=== PATIENT | female | born 1935 | race Caucasian/White ===

== ENCOUNTER 2016-06-10 12:11 | Emergency (ER) | payer OTHER, BC ==
[~2016-06-10] VITALS: Ht 165.1 cm; Wt 75.0 kg
[~2016-06-10 12:11] MED LIST: ADVIL PM1 TABLET PO; ADVIL200 MG PO; ASPIR 8181 M1 PO; CALCIUM500 M6 GT; EVISTA60 MG PO; FISH OIL 1,0001 EAC7 PO; INDERAL20 MG PO; OMEPRAZOLE20 MG PO; PROPRANOLOL HCL PO; TYLENOL EXTRA500 MG PO; VITAMIN B-12250 MCG PO
[2016-06-10 13:47] LABS: HEMATOCRIT 39.2 % (36.0-46.0); MCH 31.4 PG (29.0-34.0); MCHC 33.9 G/DL (30.0-36.0); MCV 92.7 FL (83-99); MEAN PLAT.VOLUME 9.5 uM^3 (9.5-12.4); PLATELET COUNT 318 K/uL (156-360); RBC DIS.WIDTH-CV 13.8 % (11.8-14.6); RBC DIS.WIDTH-SD 45.3 % (39-53); RED BLOOD COUNT 4.23 M/uL (3.80-5.20); WHITE BLOOD COUNT 8.4 K/uL (4.1-10.2)
[2016-06-10 13:57] LABS: CHLORIDE 107 mEq/L (99-109); POTASSIUM 4.1 mEq/L (3.7-5.4); SODIUM 138 mEq/L (136-147)
[2016-06-10 13:59] LABS: GLUCOSE 104 mg/dL (70-99)
[2016-06-10 14:00] LABS: ANION GAP 11 MEQ/L (2-14)
[2016-06-10 14:03] LABS: GFR ESTIMATE (CALCULATED) > 59 mL/min/; UREA NITROGEN (BUN) 10 mg/dL (9-23)
[2016-06-10 15:30] VITALS: BP 156/85
== END 2016-06-10 15:31 | disposition home or self-care (01) ==
LOC: EME 12:11
DX: S43.402A Unspecified sprain of left shoulder joint, initial encounter (principal); R42 Dizziness and giddiness; R07.9 Chest pain, unspecified; W18.30XA Fall on same level, unspecified, initial encounter; K21.9 Gastro-esophageal reflux disease without esophagitis; Z86.73 Personal history of transient ischemic attack (TIA), and cerebral infarction without residual deficits; Z79.82 Long term (current) use of aspirin
CPT/HCPCS: 70450; 71020; 73030; 80048; 85027; 93005; 99281; 99284

== ENCOUNTER 2016-06-30 00:16 | Inpatient (IN) | payer OTHER, BC ==
[~2016-06-30] VITALS: Ht 165.1 cm; Wt 74.9 kg
[2016-06-30] MEDS ORDERED: ADVIL PM1 TABLET PO (01:47)
[2016-06-30 01:48] LABS: HEMATOCRIT 38.7 % (36.0-46.0); MCH 30.9 PG (29.0-34.0); MCHC 33.1 G/DL (30.0-36.0); MCV 93.5 FL (83-99); MEAN PLAT.VOLUME 9.5 uM^3 (9.5-12.4); PLATELET COUNT 309 K/uL (156-360); RBC DIS.WIDTH-CV 13.7 % (11.8-14.6); RBC DIS.WIDTH-SD 46.9 % (39-53); RED BLOOD COUNT 4.14 M/uL (3.80-5.20)
[2016-06-30] MEDS ORDERED: NASAL SPRAY30 M2 BOTH NARES (01:48)
[2016-06-30] MEDS ORDERED: GENTEAL TEARS 015 M1 BOTH EYES (01:48)
[2016-06-30 01:50] LABS: WHITE BLOOD COUNT 11.2 K/uL (4.1-10.2)
[2016-06-30 02:03] LABS: CHLORIDE 104 mEq/L (99-109); POTASSIUM 4.6 mEq/L (3.7-5.4); SODIUM 134 mEq/L (136-147)
[2016-06-30 02:05] LABS: GLUCOSE 136 mg/dL (70-99)
[2016-06-30 02:06] LABS: ANION GAP 10 MEQ/L (2-14)
[2016-06-30 02:09] LABS: GFR ESTIMATE (CALCULATED) > 59 mL/min/
[2016-06-30 02:10] LABS: UREA NITROGEN (BUN) 16 mg/dL (9-23)
[2016-06-30 02:15] LABS: TROP-I INTERPRETATION NEGATIVE; TROPONIN-I < 0.01 ng/mL (0.0-0.30)
[2016-06-30 02:32] LABS: ADD MIUA? YES; BILIRUBIN NEGATIVE; BLOOD NEGATIVE; COLOR YELLOW ((YELLOW)); GLUCOSE (STRIP) NEGATIVE; KETONES NEGATIVE; LEUKOCYTES TRACE; NITRITE NEGATIVE; PROTEIN (STRIP) NEGATIVE; SPECIFIC GRAVITY 1.017 (1.000-1.030); UROBILINOGEN 0.2 MG/DL (0.2-1.0)
[2016-06-30 02:53] LABS: BACTERIA NONE SEEN /HPF; EPITHELIAL CELLS 2+ /HPF; RED BLOOD CELLS 0-5 /HPF (0-5); UCUL ADDED? NO; WHITE BLOOD CELLS 0-5 /HPF (0-5)
[2016-06-30 02:54] LABS: MUCUS TRACE /LPF
[2016-06-30 05:32] VITALS: BP 169/77
[2016-06-30 07:46] VITALS: BP 117/60
[2016-06-30 11:57] VITALS: BP 149/68
[2016-06-30 15:55] VITALS: BP 168/77
[2016-06-30 20:40] VITALS: BP 163/73
[2016-07-01] VITALS (7 sets, daily range): BP systolic 135–168; BP diastolic 65–78
[2016-07-01 06:17] LABS: EOSINOPHIL (%) 3.7 % (0-5); EOSINOPHIL COUNT 0.3 K/uL (0-0.3); HEMATOCRIT 38.8 % (36.0-46.0); IMMATURE GRANULOCYTE (%) 0.4 % (0.0-0.7); INSTRUMENT ABS NEUTROPHIL CT 3.7 K/uL; LYMPHOCYTE COUNT 2.8 K/uL (1.0-2.8); MCH 30.6 PG (29.0-34.0); MCHC 32.2 G/DL (30.0-36.0); MCV 94.9 FL (83-99); MEAN PLAT.VOLUME 9.7 uM^3 (9.5-12.4); MONOCYTE (%) 12.5 % (3-12); NEUTROPHIL (%) 47.6 % (45-76); NEUTROPHIL COUNT 3.7 K/uL (1.8-6.4); PLATELET COUNT 285 K/uL (156-360); RBC DIS.WIDTH-CV 13.6 % (11.8-14.6); RBC DIS.WIDTH-SD 47.8 % (39-53); RED BLOOD COUNT 4.09 M/uL (3.80-5.20)
[2016-07-01 06:18] LABS: WHITE BLOOD COUNT 7.8 K/uL (4.1-10.2)
[2016-07-01 06:26] LABS: ALKALINE PHOSPHATASE 64 IU/L (3-129); ANION GAP 8 MEQ/L (2-14); CHLORIDE 103 MEQ/L (99-109); GFR ESTIMATE (CALCULATED) > 59 mL/min/; MAGNESIUM 2.1 mg/dl (1.3-2.7); POTASSIUM 4.4 MEQ/L (3.7-5.4); SAMPLE HEMOLYSIS CHECK 0; SAMPLE ICTERIC CHECK 0; SAMPLE LIPEMIA CHECK 0; SODIUM 135 MEQ/L (136-147); TOTAL BILIRUBIN 0.8 MG/DL (0.0-1.0); UREA NITROGEN (BUN) 8 mg/dL (9-23)
[2016-07-01 06:41] LABS: GLUCOSE 94 mg/dL (70-99)
[2016-07-02 05:33] VITALS: BP 156/72
[2016-07-02 08:00] VITALS: BP 165/75
[2016-07-02 11:56] VITALS: BP 142/66
[2016-07-02 15:45] VITALS: BP 120/66
[2016-07-02 23:42] VITALS: BP 149/76
[2016-07-03 07:19] VITALS: BP 152/72
[2016-07-03 15:38] VITALS: BP 139/77
[2016-07-03 23:27] VITALS: BP 142/60
[2016-07-04 07:54] VITALS: BP 149/69
[2016-07-04] MEDS ORDERED: NORCO 5/3251 TABLET PO (10:14)
[2016-07-04 12:33] VITALS: BP 149/94
== END 2016-07-04 12:43 | DRG 184 ==
LOC: EME → EDBD 00:16 → EME 00:16 → 3EAST 02:46 → EDOF 02:46 → 3EAST 05:16
PROVIDERS: Emergency Medicine; Surgery
DX: S22.43XA Multiple fractures of ribs, bilateral, initial encounter for closed fracture (principal); I47.2 Ventricular tachycardia; E87.1 Hypo-osmolality and hyponatremia; W18.39XA Other fall on same level, initial encounter; M25.512 Pain in left shoulder; E03.9 Hypothyroidism, unspecified; E78.2 Mixed hyperlipidemia; G25.0 Essential tremor; M81.0 Age-related osteoporosis without current pathological fracture; K21.9 Gastro-esophageal reflux disease without esophagitis; Y92.019 Unspecified place in single-family (private) house as the place of occurrence of the external cause; D72.829 Elevated white blood cell count, unspecified
CPT/HCPCS: 71010; 71250; 72170; 80048; 80053; 81003; 83735; 84100; 84484; 85025; 85027; 93005; 94010; 94667; 94668; 94799; 97530 GP; 99281; 99285; J1885; J2270; J2405; J3480; J7030

== ENCOUNTER 2017-09-30 23:50 | Emergency (ER) | payer OTHER, BC ==
[~2017-09-30] VITALS: Ht 165.1 cm; Wt 68.2 kg
[~2017-09-30 23:50] MED LIST changes: +GENTEAL TEARS 015 M1 BOTH EYES; +NASAL SPRAY30 M2 BOTH NARES; +NORCO 5/3251 TABLET PO
[2017-10-01 01:35] LABS: HEMATOCRIT 37.1 % (36.0-46.0); HEMOGLOBIN 12.5 G/DL (11.9-15.5); MCH 30.7 PG (29.0-34.0); MCHC 33.7 G/DL (30.0-36.0); MCV 91.2 FL (83-99); PLATELET COUNT 254 K/uL (156-360); RBC DIS.WIDTH-SD 46.9 % (39-53); RED BLOOD COUNT 4.07 M/uL (3.80-5.20); WHITE BLOOD COUNT 11.8 K/uL (4.1-10.2)
[2017-10-01 01:47] LABS: APPEARANCE CLEAR ((CLEAR)); BILIRUBIN NEGATIVE; BLOOD SMALL; COLOR YELLOW ((YELLOW)); GLUCOSE (STRIP) NEGATIVE; KETONES NEGATIVE; LEUKOCYTES LARGE; NITRITE NEGATIVE; PROTEIN (STRIP) NEGATIVE; SPECIFIC GRAVITY 1.008 (1.000-1.030); UROBILINOGEN 0.2 MG/DL (0.2-1.0)
[2017-10-01 01:48] LABS: CHLORIDE 104 mEq/L (99-109); POTASSIUM 3.9 mEq/L (3.7-5.4); SODIUM 136 mEq/L (136-147)
[2017-10-01 01:50] LABS: GLUCOSE 118 mg/dL (70-99)
[2017-10-01 01:54] LABS: GFR ESTIMATE (CALCULATED) 56 mL/min/
[2017-10-01 01:55] LABS: UREA NITROGEN (BUN) 17 mg/dL (9-23)
[2017-10-01 01:56] LABS: BACTERIA RARE /HPF; EPITHELIAL CELLS RARE /HPF; MUCUS TRACE /LPF; WHITE BLOOD CELLS TNTC /HPF (0-5)
[2017-10-01] MEDS ORDERED: PERCOCET 5/31 TABLET PO (04:21)
[2017-10-01 05:23] VITALS: BP 150/70
== END 2017-10-01 05:23 | disposition left against medical advice (07) ==
LOC: EME → EDBD 23:50 → EME 10-01 05:23
PROVIDERS: Emergency Medicine
DX: S32.411A Displaced fracture of anterior wall of right acetabulum, initial encounter for closed fracture (principal); S32.591A Other specified fracture of right pubis, initial encounter for closed fracture; W18.30XA Fall on same level, unspecified, initial encounter; Z79.82 Long term (current) use of aspirin; Z91.81 History of falling; K21.9 Gastro-esophageal reflux disease without esophagitis; F41.9 Anxiety disorder, unspecified; Z86.73 Personal history of transient ischemic attack (TIA), and cerebral infarction without residual deficits; Z88.2 Allergy status to sulfonamides; Z88.1 Allergy status to other antibiotic agents; Z88.0 Allergy status to penicillin; Z87.891 Personal history of nicotine dependence; Z91.040 Latex allergy status
CPT/HCPCS: 70450; 71045; 72192; 73501; 80048; 81003; 85027; 93005